=== PATIENT | male | born 1950 ===

== ENCOUNTER 2022-02-24 12:15 | Inpatient (IN) | payer MEDICARE, OTHER ==
[2022-02-24] VITALS (7 sets, daily range): BP systolic 106–127; BP diastolic 65–72
[~2022-02-24] VITALS: Ht 182.9 cm; Wt 99.8 kg
[2022-02-24] MEDS ORDERED: SODIUM CHLORIDE 0.9% 1000ML 500 ML IV ONE ×2 (12:45→13:30)
[2022-02-24] MEDS ORDERED: DEXTROSE 5% 1,000 ML IV ONE (12:51)
[2022-02-24] MEDS ORDERED: DEXTROSE 50% SYRINGE 50 ML IV ONE (12:52)
[2022-02-24 13:06] LABS: BASOPHILS % 0.2 % (0.0-1.0); EOSINOPHILS % 0.2 % (0.0-6.0); LYMPHOCYTES # (AUTO) 0.6 (1.0-3.2); LYMPHOCYTES % 14.8 % (18.0-39.1); MEAN CORPUSCULAR HEMOGLOBIN 31.2 pg (28-32); MEAN CORPUSCULAR HGB CONC 31.7 g/dL (31-35); MEAN CORPUSCULAR VOLUME 98.4 fL (81-99); MONOCYTES # (AUTO) 0.2 (0.2-0.8); MONOCYTES % 5.4 % (4.4-11.3); NEUTROPHILS # (AUTO) 3.2 (2.1-6.9); NEUTROPHILS % 78.4 % (38.7-80.0); PLATELET COUNT 98 x10e3/uL (140-360); RED BLOOD COUNT 1.89 x10e6/uL (4.3-5.7); RED CELL DISTRIBUTION WIDTH 17.2 % (11.7-14.4)
[2022-02-24 13:13] LABS: HEMATOCRIT 18.6 % (38.2-49.6); HEMOGLOBIN 5.9 g/dL (14.0-18.0)
[2022-02-24] MEDS ORDERED: NOREPINEPHRINE 8 MG/D5W 250 ML 250 ML ONE (13:13)
[2022-02-24] MEDS ORDERED: FUROSEMIDE INJ 10 MG/ML 2 ML VIAL IV PRN (13:15)
[2022-02-24] MEDS ORDERED: SODIUM CHLORIDE 0.9% 250ML 250 ML IV ONE (13:15)
[2022-02-24] MEDS: Vancomycin IV 1 GM in SODIUM CHLORIDE 0.9% 250ML 250 ML IV SCH (13:16)
[2022-02-24] MEDS ORDERED: SODIUM CHLORIDE 0.9% 250ML 250 ML ONE (13:19)
[2022-02-24 13:21] LABS: CLARITY,URINE CLOUDY (CLEAR); COLOR,URINE YELLOW (YELLOW)
[2022-02-24 13:22] LABS: KETONES,URINE NEGATIVE (NEGATIVE); LEUKOCYTE ESTERASE ,URINE NEGATIVE (NEGATIVE); NITRITE,URINE NEGATIVE (NEGATIVE); PROTEIN,URINE DIPSTICK 2+ (NEGATIVE); URINE UROBILINOGEN 0.2 mg/dL (0.2 - 1)
[2022-02-24] MEDS ORDERED: DEXTROSE 50% SYRINGE 50 ML IV STA ×2 (13:22→13:42)
[2022-02-24 13:25] LABS: ALANINE AMINOTRANSFERASE 1503 IU/L (0-55); ALBUMIN/GLOBULIN RATIO 0.6 (0.8-2.0); ALKALINE PHOSPHATASE 914 IU/L (40-150); ANION GAP 17.2 mmol/L (8-16); BLOOD UREA NITROGEN 111 mg/dL (7-26); BUN/CREATININE RATIO 50 (6-25); CARBON DIOXIDE 23 mmol/L (22-29); CHLORIDE 109 mmol/L (98-107); CREATININE, SERUM 2.23 mg/dL (0.72-1.25); POTASSIUM 5.2 mmol/L (3.5-5.1); SODIUM 144 mmol/L (136-145)
[2022-02-24 13:33] LABS: BACTERIA,URINE MODERATE /HPF; EPITHELIAL CELLS,URINE FEW /LPF; RBC,URINE 0-5 /HPF (0-5); WBC,URINE (MAN) 0-5 /HPF (0-5)
[2022-02-24 13:34] LABS: AMORPHOUS SEDIMENT,URINE MANY (FEW)
[2022-02-24] MEDS ORDERED: SODIUM BICARBONATE 8.4% INJ 50 ML SYR IV STA (13:42)
[2022-02-24] MEDS ORDERED: CALCIUM GLUC 1 G/50 ML NACL 50 ML IV ONE ×2 (13:45→14:30)
[2022-02-24] MEDS ORDERED: INSULIN REGULAR, HUMAN 100 UNIT/1 ML IV ONE (13:45)
[2022-02-24 13:46] LABS: GLUCOSE 44 mg/dL (74-118)
[2022-02-24] MEDS: NOREPINEPHRINE 8 MG/D5W 250 ML 250 ML IV SCH (13:49)
[2022-02-24 13:54] LABS: INR 1.52; PARTIAL THROMBOPLASTIN TIME 35.5 seconds (23.8-35.5); PROTHROMBIN TIME 19.6 seconds (11.9-14.5)
[2022-02-24] MEDS ORDERED: ONDANSETRON HCL INJ 2MG/ML 2ML 2 MG/ML VIAL IV PRN (14:15)
[2022-02-24] MEDS ORDERED: SODIUM CHLORIDE FLUSH 10 ML SYR INJ PRN (14:15)
[2022-02-24 16:25] LABS: FERRITIN 3237.32 ng/mL (21.81-274.66)
[2022-02-24] MEDS: FAMOTIDINE 20 MG/2 ML VIAL IV SCH (17:44)
[2022-02-24 19:38] LABS: BASOPHILS % 0.2 % (0.0-1.0); EOSINOPHILS % 0.3 % (0.0-6.0); HEMATOCRIT 23.4 % (38.2-49.6); HEMOGLOBIN 7.4 g/dL (14.0-18.0); LYMPHOCYTES # (AUTO) 0.7 (1.0-3.2); LYMPHOCYTES % 10.7 % (18.0-39.1); MEAN CORPUSCULAR HEMOGLOBIN 30.6 pg (28-32); MEAN CORPUSCULAR HGB CONC 31.6 g/dL (31-35); MEAN CORPUSCULAR VOLUME 96.7 fL (81-99); MONOCYTES # (AUTO) 0.5 (0.2-0.8); MONOCYTES % 6.9 % (4.4-11.3); NEUTROPHILS # (AUTO) 5.3 (2.1-6.9); PLATELET COUNT 132 x10e3/uL (140-360); RED BLOOD COUNT 2.42 x10e6/uL (4.3-5.7); RED CELL DISTRIBUTION WIDTH 16.8 % (11.7-14.4)
[2022-02-24] MEDS: DEXTROSE 50% SYRINGE 50 ML IV PRN (19:42)
[2022-02-24 22:28] LABS: CREATINE KINASE MB 6.4 ng/mL (0-5.0)
[2022-02-25] VITALS (47 sets, daily range): BP systolic 94–133; BP diastolic 59–84
[2022-02-25] MEDS: DEXTROSE 50% SYRINGE 50 ML IV PRN ×2 (02:13→11:32)
[2022-02-25 06:50] LABS: BASOPHILS % 0.2 % (0.0-1.0); EOSINOPHILS % 0.6 % (0.0-6.0); LYMPHOCYTES # (AUTO) 0.6 (1.0-3.2); LYMPHOCYTES % 11.4 % (18.0-39.1); MEAN CORPUSCULAR HEMOGLOBIN 30.9 pg (28-32); MEAN CORPUSCULAR HGB CONC 31.8 g/dL (31-35); MEAN CORPUSCULAR VOLUME 97.3 fL (81-99); MONOCYTES # (AUTO) 0.3 (0.2-0.8); MONOCYTES % 5.5 % (4.4-11.3); NEUTROPHILS # (AUTO) 4.5 (2.1-6.9); NEUTROPHILS % 81.7 % (38.7-80.0); PLATELET COUNT 115 x10e3/uL (140-360); RED BLOOD COUNT 2.23 x10e6/uL (4.3-5.7); RED CELL DISTRIBUTION WIDTH 17.4 % (11.7-14.4)
[2022-02-25 07:03] LABS: HEMATOCRIT 21.7 % (38.2-49.6); HEMOGLOBIN 6.9 g/dL (14.0-18.0)
[2022-02-25 07:10] LABS: ALBUMIN 2.1 g/dL (3.5-5.0); ALBUMIN/GLOBULIN RATIO 0.7 (0.8-2.0); ANION GAP 14.5 mmol/L (8-16); CALCIUM 7.7 mg/dL (8.4-10.2); CREATININE, SERUM 2.49 mg/dL (0.72-1.25); POTASSIUM 4.5 mmol/L (3.5-5.1)
[2022-02-25] MEDS ORDERED: CALCIUM ACETAT667 MG PO (07:14)
[2022-02-25] MEDS ORDERED: CEFUROXIME500 MG (07:14)
[2022-02-25] MEDS ORDERED: COLACE 2-IN-11 EACH (07:14)
[2022-02-25] MEDS ORDERED: CARVEDILOL6.25 MG (07:14)
[2022-02-25] MEDS ORDERED: FEROSUL325 MG PO (07:14)
[2022-02-25] MEDS ORDERED: ATORVASTATIN CA40 MG PO (07:14)
[2022-02-25] MEDS ORDERED: LACTULOSE20 GM/30 M PO (07:14)
[2022-02-25 07:28] LABS: CREATINE KINASE MB 4.6 ng/mL (0-5.0)
[2022-02-25] MEDS ORDERED: LACTULOSE SYRUP 20 GM/30 ML UDC PO PRN (07:45)
[2022-02-25] MEDS ORDERED: SENNA-S TABLET PO PRN (07:45)
[2022-02-25 07:46] LABS: MAGNESIUM 2.1 MG/DL (1.3-2.1); PHOSPHORUS 5.6 MG/DL (2.3-4.7)
[2022-02-25 08:03] LABS: BAND NEUTROPHILS % (MANUAL) 1 %; LYMPHOCYTES % (MANUAL) 7 % (19-48); METAMYELOCYTES % (MANUAL) 1 % (0-0); MONOCYTES % (MANUAL) 1 % (3.4-9.0); NEUTROPHILS % (MANUAL) 90 % (40-74)
[2022-02-25 08:04] LABS: PLATELET ESTIMATE SLIGHTLY DECREASED; PLATELET MORPHOLOGY COMMENT NORMAL
[2022-02-25] MEDS ORDERED: SODIUM CHLORIDE 0.9% 250ML 250 ML IV ONE (08:30)
[2022-02-25] MEDS: FAMOTIDINE 20 MG/2 ML VIAL IV SCH ×2 (09:12→16:40)
[2022-02-25] MEDS ORDERED: DEXTROSE 5%/0.45% SOD CHL 1,000 ML IV SCH (12:00)
[2022-02-25] MEDS: NOREPINEPHRINE 8 MG/D5W 250 ML 250 ML IV SCH (13:30)
[2022-02-25] MEDS: Vancomycin IV 1 GM in SODIUM CHLORIDE 0.9% 250ML 250 ML IV SCH (14:20)
[2022-02-25 14:57] LABS: HEMATOCRIT 24.2 % (38.2-49.6); HEMOGLOBIN 7.7 g/dL (14.0-18.0)
[2022-02-25 15:24] LABS: CREATINE KINASE MB 3.9 ng/mL (0-5.0)
[2022-02-25 20:41] LABS: CREATINE KINASE MB 3.6 ng/mL (0-5.0)
[2022-02-25] MEDS ORDERED: ATORVASTATIN 40 MG TAB PO SCH (21:00)
== END 2022-02-25 22:38 | disposition short-term general hospital (02) | DRG 871 ==
LOC: ER 12:20 → ERHOLD 14:03 → ICU 20:01
PROVIDERS: ADMIT Internal Medicine; ATTEND Internal Medicine
PROC: 02HV33Z Insertion of Infusion Device into Superior Vena Cava, Percutaneous Approach (ICD-10-PCS; principal; 2022-02-24)
PROC: 30243N1 Transfusion of Nonautologous Red Blood Cells into Central Vein, Percutaneous Approach (ICD-10-PCS; 2022-02-24)
PROC: 3E04329 Introduction of Other Anti-infective into Central Vein, Percutaneous Approach (ICD-10-PCS; 2022-02-24)
PROC: 3E043XZ Introduction of Vasopressor into Central Vein, Percutaneous Approach (ICD-10-PCS; 2022-02-24)
DX: A41.9 Sepsis, unspecified organism (principal); G93.41 Metabolic encephalopathy; I50.43 Acute on chronic combined systolic (congestive) and diastolic (congestive) heart failure; R65.21 Severe sepsis with septic shock; J69.0 Pneumonitis due to inhalation of food and vomit; K72.00 Acute and subacute hepatic failure without coma; I13.0 Hypertensive heart and chronic kidney disease with heart failure and stage 1 through stage 4 chronic kidney disease, or unspecified chronic kidney disease; N17.9 Acute kidney failure, unspecified; N39.0 Urinary tract infection, site not specified; D62 Acute posthemorrhagic anemia; I25.10 Atherosclerotic heart disease of native coronary artery without angina pectoris; J44.9 Chronic obstructive pulmonary disease, unspecified; E78.5 Hyperlipidemia, unspecified; D64.9 Anemia, unspecified; N18.9 Chronic kidney disease, unspecified; Z95.1 Presence of aortocoronary bypass graft; Z20.822 Contact with and (suspected) exposure to COVID-19; E86.0 Dehydration; E87.5 Hyperkalemia; I71.4 Abdominal aortic aneurysm, without rupture
CPT/HCPCS: 0223U; 36415; 36556; 51700; 71045; 71250; 74176; 76700; 80053; 80329; 81001; 82550; 82553; 82607; 82728; 82948; 83540; 83605; 83735; 84100; 84466; 84484; 85014; 85018; 85025; 85610; 85730; 86850; 86900; 86920; 87040; 87086; 93005; 93970; 94799; 99285; J0692; J1817; J2405; J3370; J7050; J7070; J7799; P9016